=== PATIENT | female | born 1995 | race American Indian/Alaskan Native ===

== ENCOUNTER 2020-11-12 10:41 | Emergency (ER) | payer MEDICAID ==
[2020-11-12 12:04] VITALS: BP 113/82
== END 2020-11-12 17:41 | disposition left against medical advice (07) ==
LOC: ED 10:41
DX: K13.0 Diseases of lips (principal); Z53.21 Procedure and treatment not carried out due to patient leaving prior to being seen by health care provider

== ENCOUNTER 2022-02-22 07:17 | Emergency (ER) | payer MEDICAID ==
[2022-02-22 07:41] VITALS: BP 109/64
--- NOTE | 2022-02-22 07:59 | Emergency Department Report ---
- General Chief Complaint: Pain General Stated Complaint: BODYACHE/HEADACHE/SORE THROAT/CHEST HURT COUGH Time Seen by Provider: 02/22/22 07:44 Source: patient Mode of arrival: Ambulatory Limitations: No Limitations - History of Present Illness Initial Comments: 26-year-old -Irish female with no significant past medical history presents to the ER today with complaints of flulike symptoms. Patient states her symptoms started 2 days ago. She reports generalized body aches including chest soreness, dry cough, sore throat, headache and chills. She denies any ill contacts. She states that she did travel to [place] 2 weeks ago. She has not been vaccinated in the COVID-19. She reports no other symptoms at this time MD Complaint: cough, sore throat, other (Generalized body aches, headaches) - Related Data Previous Rx's Medication Instructions Recorded Last Taken Type Ibuprofen [Motrin] 600 mg PO Q8H PRN #30 tablet 02/22/22 Unknown Rx Loratadine [Claritin] 10 mg PO DAILY #30 tab 02/22/22 Unknown Rx Allergies Allergy/AdvReac Type Severity Reaction Status Date / Time No Known Allergies Allergy Unverified 11/12/20 12:01 ED Review of Systems ROS: Stated complaint: BODYACHE/HEADACHE/SORE THROAT/CHEST HURT COUGH Other details as noted in HPI Comment: All other systems reviewed and negative Constitutional: chills ENT: throat pain. denies: ear pain, congestion Respiratory: cough. denies: shortness of breath, wheezing Cardiovascular: denies: chest pain Gastrointestinal: denies: abdominal pain, nausea, vomiting, diarrhea, constipation, hematemesis, melena, hematochezia Musculoskeletal: myalgia Neurological: headache ED Past Medical Hx - Social History Smoking Status: Never Smoker - Medications Home Medications: Home Medications Medication Instructions Recorded Confirmed Last Taken Type Ibuprofen [Motrin] 600 mg PO Q8H PRN #30 tablet 02/22/22 Unknown Rx Loratadine [Claritin] 10 mg PO DAILY #30 tab 02/22/22 Unknown Rx ED Physical Exam - General Limitations: No Limitations General appearance: alert, in no apparent distress - Head Head exam: Present: atraumatic, normocephalic, normal inspection - Eye Eye exam: Present: normal appearance, PERRL, EOMI Pupils: Present: normal accommodation - ENT ENT exam: Present: mucous membranes moist - Expanded ENT Exam Expanded Mouth exam: Present: normal external inspection Throat exam: Positive: tonsillar erythema. Negative: tonsillomegaly, tonsillar exudate, R peritonsillar mass, L peritonsillar mass - Neck Neck exam: Present: normal inspection, full ROM. Absent: meningismus - Respiratory Respiratory exam: Present: normal lung sounds bilaterally. Absent: respiratory distress, wheezes, rales, rhonchi, chest wall tenderness - Cardiovascular Cardiovascular Exam: Present: regular rate, normal rhythm, normal heart sounds - GI/Abdominal GI/Abdominal exam: Present: soft. Absent: distended, tenderness, guarding, rebound - Neurological Exam Neurological exam: Present: alert, oriented X3, CN II-XII intact, normal gait - Psychiatric Psychiatric exam: Present: normal affect, normal mood - Skin Skin exam: Present: intact ED Course Vital Signs 02/22/22 07:40 Temperature 98.5 F Pulse Rate 77 Respiratory 18 Rate Blood Pressure 109/64 O2 Sat by Pulse 100 Oximetry ED Medical Decision Making - Medical Decision Making 26-year-old -Irish female with no significant past medical history presents to the ER today with complaints of flulike symptoms. Patient states her symptoms started 2 days ago. She reports generalized body aches including chest soreness, dry cough, sore throat, headache and chills. She denies any ill contacts. She states that she did travel to [place] 2 weeks ago. She has not been vaccinated in the COVID-19. She reports no other symptoms at this time. 0804: Patient is well-appearing, nontoxic and not in significant distress. She has no meningeal signs on exam. Chest is clear to auscultation. She is not any respiratory distress. Throat exam shows mild erythema but no swelling or exudates or any signs of peritonsillar abscess or Indra angina. She is controlling her secretions well without any trismus or drooling. Airway is intact. She has no stridor. She has a soft nontender abdomen. She appears well-hydrated. She is neurologically intact. Gait is normal. Her vital signs are stable. Patient symptoms likely related to viral illness at this time. Did recommend that she get a COVID-19 test because it could be a possible cause of her symptoms as well. Patient instructed in the meantime treatment will begin mainly towards her symptoms, and lots of fluids. Patient expressed understanding agree with plan. Patient was stable at time of discharge. Critical care attestation.: If time is entered above; I have spent that time in minutes in the direct care of this critically ill patient, excluding procedure time. ED Disposition Clinical Impression: Viral syndrome Disposition: 01 HOME / SELF CARE / HOMELESS Is pt being admited?: No Does the pt Need Aspirin: No Condition: Stable Instructions: Viral Illness, Adult Additional Instructions: Your symptoms are likely related to nonspecific viral illness, including the flu, and also COVID-19. I do recommend that she get an outpatient COVID-19 test at a local urgent care, pharmacy or drive-through clinic. Typically viral illnesses are treated symptomatically and can last anywhere from 7 to 10 days. I do recommend that you drink lots of fluids, you can take a multivitamin include vitamin C, vitamin D and zinc. Take ibuprofen as needed for pain. Take the Claritin daily as prescribed. You can do [id number] throat lozenges or throat sprays to help your sore throat. Follow-up with your primary care doctor. Return to the ER if your symptoms changes or worsens in any way. Prescriptions: Loratadine [Claritin] 10 mg PO DAILY #30 tab Ibuprofen [Motrin] 600 mg PO Q8H PRN #30 tablet PRN Reason: Pain Referrals: CAMACHO CHAN MD [Staff Physician] - 3-5 Days Forms: Work/School Release Form(ED) Time of Disposition: 07:59
== END 2022-02-22 08:15 | disposition home or self-care (01) ==
LOC: ED 07:17
DX: B34.9 Viral infection, unspecified (principal)
CPT/HCPCS: 99282